=== PATIENT | male | born 1965 | race African-American/Black ===

== ENCOUNTER → 2018-10-09 | Outpatient (CLI) | payer OTHER ==
--- NOTE | 2018-10-09 12:40 | RAD ---
EXAM: Pelvis, single view. HISTORY: Fracture. Pain. COMPARISON: None. FINDINGS: A frontal view of the pelvis is obtained. There is a malleable plate and fixation screws traversing the right hemipelvis and pubic symphysis. There is disruption of the malleable plate at the level of the right superior pubic ramus. This may be intentional or due to its rotation fracture. There is callus formation surrounding a healed medial right acetabular fracture. The sacroiliac joints are intact. IMPRESSION: 1. Nominal fixation plate and screws traversing the right hemipelvis and pubis symphysis. There is disruption of the malleable plate at the level of the right superior ramus which may be due to interval instrumentation fracture. There is no prior radiograph at the time of dictation to assess for interval change. 2. Healed right acetabular fracture. Electronically signed by: Edilia Justice MD (10/09/2018 12:37 PM) [id number]
== END | disposition home or self-care (01) ==
LOC: RAD 11:21
PROVIDERS: ATTEND Radiology Therapeutic Radiology
DX: S32.491D Other specified fracture of right acetabulum, subsequent encounter for fracture with routine healing (principal); T81.33XD Disruption of traumatic injury wound repair, subsequent encounter; X58.XXXD Exposure to other specified factors, subsequent encounter
CPT/HCPCS: 72170